=== PATIENT | male | born 1975 | race Caucasian/White ===

== ENCOUNTER 2018-12-14 02:15 | Emergency (ER) | payer MEDICAID ==
[~2018-12-14] VITALS: Ht 180.3 cm; Wt 72.6 kg
[~2018-12-14 02:15] MED LIST: GENTAMICIN SULF15 G2 TOPIC; OPTIVAR6 ML LEFT EYE; PREDNISONE20 MG ORAL; STRIBILD TABLE1 EACH PO
[2018-12-14] MEDS ORDERED: BIKTARVY 50-201 EACH PO (02:23)
[2018-12-14] MEDS ORDERED: BENAZEPRIL HCL10 MG ORAL (02:23)
--- NOTE | 2018-12-14 02:30 | NUR ---
ED Nurse Note: Patient walked into ED c/o an abscess on the left side of his buttocks that started 3 days ago. no active bleeding noted.
[2018-12-14] MEDS ORDERED: Lidocaine 1% 10mg/ml/Epi 0.005mg/ml 30ml vial INJ ONE (02:45)
[2018-12-14 02:51] VITALS: BP 134/82
[2018-12-14] MEDS ORDERED: IBUPROFEN600 MG ORAL (03:18)
[2018-12-14] MEDS ORDERED: CEPHALEXIN500 MG ORAL (03:18)
[2018-12-14] MEDS ORDERED: DOXYCYCLINE MO100 MG ORAL (03:18)
[2018-12-14 03:29] VITALS: BP 130/85
--- NOTE | 2018-12-14 03:30 | NUR ---
ER DISCHARGE NOTE: Patient is cleared to be discharged per ERMD, pt is aox4, on room air, with stable vital signs. pt was given dc and prescription instructions, pt was able to verbalize understanding, pt id band removed without complications. pt is able to ambulate with steady gait. pt took all belongings.
--- NOTE | 2018-12-20 13:35 | Emergency Room Report ---
History of Present Illness General Chief Complaint: Skin Rash/Abscess Source: Patient Present Illness HPI Patient 43-year-old male presented after increased pain to the buttock area. Patient had previous history of cyst drainage x2. Patient had reportedly been having worsening pain to the area. He denies any fever. Patient had been noted to have pain worse with movement and sitting down. This is similar to previous pilonidal abscess. 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) Hx Cerebrovascular Accident: No Hx Seizures: No Review of Systems All Other Systems: negative except mentioned in HPI Physical Exam General Appearance: well appearing, no apparent distress, alert, GCS 15, non- toxic Head: normocephalic, atraumatic ENT: hearing grossly normal, normal voice Neck: full range of motion, supple Respiratory: no respiratory distress, speaking full sentences Cardiovascular #1: normal inspection Gastrointestinal: normal inspection Musculoskeletal: no calf tenderness Neurologic: normal inspection, alert, oriented x3, responsive, normal gait Psychiatric: mood/affect normal Skin: other - 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 Differential diagnosis include was not limited to abscess, cellulitis, necrotizing fasciitis among others. Patient has a benign exam and does not appear to require any further imaging or laboratory testing at this time. Patient was noted to have what appears to be a pilonidal abscess. Patient was consented for incision and drainage. Area was anesthetized after prep with Betadine and small amount of purulent material was expressed from the abscess patient was given prescription for pain medications as well as antibiotics. Patient was advised to have the wound rechecked in 2-3 days. Disposition: HOME, SELF-CARE Condition: Stable Scripts Ibuprofen* (MOTRIN*) 600 Mg Tablet 600 MG ORAL Q8H PRN for For Pain, #30 TAB 0 Refills Prov: Kemar Lawrence MD 12/14/18 Doxycycline Monohydrate* (DOXYCYCLINE MONOHYDRATE*) 100 Mg Capsule 100 MG ORAL Q12H, #14 CAP 0 Refills Prov: Kemar Lawrence MD 12/14/18 Cephalexin* (KEFLEX*) 500 Mg Capsule 500 MG ORAL EVERY 6 HOURS, #28 CAP Prov: Kemar Lawrence MD 12/14/18 Patient Instructions: Incision and Drainage of a Pilonidal Cyst Kemar Lawrence MD Dec 20, 2018 13:35
== END 2018-12-14 03:32 | disposition home or self-care (01) ==
LOC: EMR 02:38
DX: L05.01 Pilonidal cyst with abscess (principal)
CPT/HCPCS: 10080; 99283; Z7502